=== PATIENT | female | born 1965 | race Caucasian/White ===

== ENCOUNTER 2018-12-29 12:31 | Day surgery (SDC) | payer OTHER ==
--- NOTE | 2018-12-21 15:24 | HP ---
HISTORY AND PHYSICAL: DATE OF ADMISSION: 12/29/18 She is coming into [facility] on 12/29/18 for left knee surgical care. CHIEF COMPLAINT: Left knee anterolateral pain and swelling. HISTORY OF PRESENT ILLNESS: The patient had a fractured left patella and in October of 2011, she had ORIF of the left patella with Dr. Trent Perez and the patella gradually recovered. Unfortunately, in the past year and more recently past couple of months, there has been increasing pain on the lateral patella with her workouts. She is trying to be in the gym and trying to do strengthening routines for the left knee and the pain will not allow it. She has been carefully evaluated and the left patella has 2 screws along the lateral margin and some irregularity of the lateral margin and we felt that the best recommendation was to remove the screws and some of the irregular bone along the lateral patella. The risks and complications were reviewed with the patient and guarantees were made about the outcome, but we think it is a reasonable thing to do. PAST MEDICAL HISTORY: Her general health has been good. No diabetes. No heart attack. No chest pain. She is able to walk up 2 flights of stairs without chest pain, without shortness of breath. She has not had any cancer. PAST SURGICAL HISTORY: She had surgical care in the past for the left knee, but also sleeve on her stomach and a cholecystectomy. Both without complications. She has also had a hysterectomy. MEDICATIONS: The daily meds include: 1. Oxybutynin 5 mg. 2. Fluoxetine 40 mg. 3. She takes vitamin D3. 4. Vitamin B12. 5. Calcium. 6. Daily vitamins. 7. Colace as needed. ALLERGIES: No allergies. FAMILY HISTORY: Positive for diabetes and cardiac. Negative for cancer. SOCIAL HISTORY: She does not smoke. She has an occasional alcoholic beverage. She works full-time in the [employer] at [employer]. REVIEW OF SYSTEMS: No history of DVT or phlebitis. PHYSICAL EXAMINATION VITAL SIGNS: Height 62, weight 175. Temperature 97.1, blood pressure 108/70. HEENT: The cranial nerves are grossly intact. The head is NC/AT. LUNGS: Clear bilaterally. HEART: Regular. S1, S2 normal. No murmurs or gallops. ABDOMEN: Soft, nontender. There is no organomegaly. EXTREMITIES: The left knee has a well-healed surgical scar over the lateral patella. There is no redness, fluctuance, or drainage. She does an easy leg raise keeping the knee extended. She is tender along the lateral patella. Nontender anteromedial patella, nontender medial and lateral left knee. There is no knee effusion. The MCL and LCL are stable. The Tito and posterior drawer are normal. The thigh and calf are soft. The neurovascular left foot is intact. Knee flexion is 120 degrees. DIAGNOSTIC STUDIES: Knee radiograph shows the 2 screws and irregularity of the lateral border of the patella. IMPRESSION: Some pain left patella, sequelae of a patellar fracture with ORIF. PLAN: Left patella removal of 2 screws and removal of some lateral bone. Goals , risks, and complications were reviewed with the patient, postoperative course and her questions were answered. Complications like infection, DVT, and pulmonary embolism were reviewed with her today and her questions were answered. [id number] #: [id number] PRICILA
[~2018-12-29 12:31] MED LIST: Acetaminophen TAB* 325 MG PO ONE; Buffered Lidocaine 1% SYRIN* 1 ML/SYRINGE INTRADERM ONE; Dexamethasone IV* 4 MG/ML 1 ML (4 MG) IV SLOW PU ONE; Famotidine TAB* 20 MG PO ONE; Gabapentin CAP(*) 300 MG PO ONE; Lactated Ringers 1000 ML Bag* 1,000 ML IV SCH; Scopolamine 1.5 mg* PATCH TRANSDERM SCH; celeCOXIB CAP* 200 MG PO ONE
[2018-12-29] MEDS ORDERED: Gabapentin CAP(*) 300 MG ONE (12:57)
[2018-12-29] MEDS ORDERED: celeCOXIB CAP* 100 MG ONE (12:57)
[2018-12-29] MEDS ORDERED: Acetaminophen TAB* 325 MG ONE (12:57)
[2018-12-29] MEDS ORDERED: Dexamethasone IV* 4 MG/ML 1 ML (4 MG) ONE (12:57)
[2018-12-29] MEDS ORDERED: Famotidine TAB* 20 MG ONE (12:57)
[2018-12-29] MEDS ORDERED: ceFAZolin 2 GM PREMIX in ORs 2 GM/50 ML BAG IVPB ONE (12:58)
[2018-12-29] MEDS ORDERED: Scopolamine 1.5 mg* PATCH ONE (12:58)
[2018-12-29] MEDS ORDERED: Midazolam* 1 MG/ML 2 ML VIAL (2 MG) ONE (14:40)
[2018-12-29] MEDS ORDERED: ROPIVACAINE 5 MG/ML 30 ML BTL (0.5%) ONE (15:24)
[2018-12-29] MEDS ORDERED: Lidocaine 1%* 5 ML VIAL ONE (15:24)
[2018-12-29] MEDS ORDERED: Bacitracin OINTMENT* 0.5% 0.5 oz TUBE ONE (15:43)
[2018-12-29] MEDS ORDERED: fentaNYL* 50 MCG/ML 2 ML VIAL (100 MCG VIAL) ONE (15:57)
[2018-12-29] MEDS ORDERED: Bupivacaine 0.25% W/EPI* 10 ML SDV ONE (16:33)
[2018-12-29] MEDS ORDERED: Propofol* 10 MG/ML 20 ML BTL ONE (16:36)
[2018-12-29] MEDS ORDERED: HYDROmorphone INJ1* 1 MG/ML SYRINGE IV PRN (16:52)
[2018-12-29] MEDS ORDERED: oxyCODONE TAB* 5 MG TAB PO PRN (16:52)
[2018-12-29] MEDS ORDERED: DiMENhydriNATE IV* 50 MG/ML VIAL IV PUSH PRN (16:52)
[2018-12-29] MEDS ORDERED: Ketorolac INJ* 30 MG/ML 1 ML VIAL IV PRN (16:52)
[2018-12-29] MEDS ORDERED: Naloxone* 0.4 MG/ML 1 ML VIAL IV PRN (16:52)
[2018-12-29] MEDS ORDERED: fentaNYL* 50 MCG/ML 2 ML VIAL (100 MCG VIAL) IV PRN (16:52)
[2018-12-29] MEDS ORDERED: Acetaminophen IV 1GM/100ML * 1,000 MG/100 ML VIAL IVPB ONE (16:52)
[2018-12-29] MEDS ORDERED: Ondansetron INJ* 2 MG/ML VIAL IV PRN (16:52)
[2018-12-29] MEDS ORDERED: ceFAZolin 1 GM in Dextrose (*) 1 GM/50 ML BAG IVPB ONE (18:16)
[2018-12-29 21:06] VITALS: BP 109/62
--- NOTE | 2018-12-30 11:50 | OP ---
CC: Dr. Huston * DATE OF OPERATION: 12/29/18 - SDS DATE OF : 67 SURGICAL CARE: Left knee. SURGEON: Tam Quintana MD. CHILDREN'S ENTERTAINER: KARTIK Desir. ANESTHESIOLOGIST: Dr. Waite. ANESTHESIA: Left adductor canal block and spinal, IV sedation. PRE-OP DIAGNOSIS: Left knee lateral pain in the region of old patellar fracture with internal fixation. POST-OP DIAGNOSIS: Left knee lateral pain in the region of old patellar fracture with internal fixation. OPERATIVE PROCEDURE: Left patellar removal of 2 screws and removal of portion of the lateral patella. COMPLICATIONS: There were no complications. DRAINS: There were no drains. CONDITION: Stable to the recovery room. INDICATION: Persistent disabling pain, left knee, in the region of the lateral patella. DESCRIPTION OF PROCEDURE: The patient was brought to the operating room, and paced on the operating table in the supine position. Following the administration of the anesthetic, the left proximal thigh was wrapped with a tourniquet. The left leg was given a preliminary ChloraPrep and then a final ChloraPrep from the tourniquet to the foot. After prepping, draping and sealing off, we did our universal protocol time-out confirming Candida Guy and a plan for a left knee surgical care with removal of screws and removal of a portion of the lateral patella. We all agreed and we proceeded. The leg was exsanguinated and the tourniquet was elevated to 275. The previous skin incision was utilized lateral and longitudinal along the lateral border of the patella. The skin and subcu was divided. Adhesions were lysed between the subcu and the lateral retinaculum and the periosteum of the patella going medially and laterally over the lateral retinaculum. The lateral retinaculum was then peeled subperiosteal off of the anterolateral patella going around to the joint. The two screws were located and removed; the more superior one was under bone and it was exposed with rongeur. The lateral patella was then smoothed with the rongeur. The cartilage of the lateral facet of the patella was in satisfactory condition. This area was all smooth and I did not think any further surgical care was necessary in that region and I checked for nonunion in the region of the old patellar fracture and there did not appear to be nonunion or any movement of bone in that region. The knee was irrigated with saline irrigation solution. The lateral retinaculum repaired with interrupted #1 Vicryl sutures in [id number] fashion. The superficial subcu closed with 3-0 Vicryl and the skin was closed with cristina. The skin and subcu was infiltrated with Marcaine with epinephrine, and 15 cc of Marcaine was placed into the knee joint as well. The patient's skin had an abrasion at the distal and medial to the incision site. This area was all covered with Ioban drape for the surgical care; and at the end of the case, the abrasion was dressed with bacitracin ointment and Betadine-soaked Telfa, and the surgical care was covered with Betadine-soaked Telfa as well and sterile gauze and sterile Webril, cryotherapy cuff, and a 6- inch Byron bandage. A knee immobilizer was applied to the patient to keep her knee straight and she will be weightbearing as tolerated on the left. She knows it is okay to remove the knee immobilizer for some knee bending in the next few days and then we will recheck her in the office on 01/04/19, especially about the area of abrasion. [id number] #: [id number] PRICILA
== END 2018-12-29 21:54 | disposition home or self-care (01) ==
LOC: OR 12:31
PROVIDERS: ATTEND Orthopaedic Surgery
DX: T84.84XA Pain due to internal orthopedic prosthetic devices, implants and grafts, initial encounter (principal); Y83.1 Surgical operation with implant of artificial internal device as the cause of abnormal reaction of the patient, or of later complication, without mention of misadventure at the time of the procedure; S82.002S Unspecified fracture of left patella, sequela; X58.XXXS Exposure to other specified factors, sequela; Y92.9 Unspecified place or not applicable; Z98.84 Bariatric surgery status; M19.90 Unspecified osteoarthritis, unspecified site; F32.9 Major depressive disorder, single episode, unspecified; G89.18 Other acute postprocedural pain
CPT/HCPCS: 88300; 88304; 88311; A9270-GY; J0690; J1100; J2250; J2704; J2795; J3010